=== PATIENT | female | born 1985 | race Hispanic/Latino ===

== ENCOUNTER 2018-09-16 02:17 | Emergency (ER) | payer SELFPAY ==
[2018-09-16 03:33] LABS: Pregnancy Test - Urine (BHCG) Negative (Negative); Pregu Control Background? CLEAR/WHITE (CLR/WHITE); Pregu Control Bar Appear? YES (CONTROL BAR); Specific Gravity 1.024 (1.002-1.036)
[2018-09-16 03:38] LABS: Bilirubin Negative (Negative); Blood, Urine Trace (Negative); Clarity Clear (Clear); Glucose, Urine (Dipstick) Normal (Negative); Leukocyte 75 Leu/uL (Negative); Mucous/LPF 2+ LPF (<2+); Nitrite Negative (Negative); Protein, Urine (Dipstick) 20 mg/dL (Neg-Trace); RBC/HPF 0-3 HPF (0-3); Urobilinogen Normal mg/dL (Less than 2)
[2018-09-16 03:39] LABS: Bacteria/HPF 1+ HPF (None Seen)
[2018-09-16 03:43] LABS: Hemoglobin 9.7 g/dL (12.0-16.0); Mean Corpuscular HGB CONC 31.8 g/dL (32.0-36.0); Mean Corpuscular Hemoglobin 22.2 pg (27.0-31.0); Mean Corpuscular Volume 69.8 fL (78.0-98.0); Mean Platelet Volume 9.2 fL (7.4-10.4); Platelet Count 344 thou/uL (130-400); RBC Distribution Width 14.3 % (11.5-14.5); Red Blood Cell (RBC) Count 4.35 mill/uL (4.20-5.40); White Blood Cell (WBC) Count 8.9 thou/uL (4.8-10.8)
[2018-09-16 03:52] LABS: ALT (SGPT) 10 U/L (8-55); AST (SGOT) 13 U/L (5-34); Albumin 4.1 g/dL (3.5-5.0); Alkaline Phosphatase 70 U/L (40-150); Anion Gap 11 mmol/L (10-20); BUN (Urea Nitrogen) 11 mg/dL (7.0-18.7); Bilirubin, Total 0.2 mg/dL (0.2-1.2); Calc. Creatinine Clearance 0 mL/min (70-130); Calcium 9.7 mg/dL (7.8-10.44); Carbon Dioxide 23 mmol/L (22-29); Chloride 104 mmol/L (98-107); Estimated GFR-MDRD Greater than 90; Globulin 3.7 g/dL (2.4-3.5); Glucose 132 mg/dL (70-105); Lipase 27 U/L (8-78); Potassium 3.9 mmol/L (3.5-5.1); Protein, Total 7.8 g/dL (6.0-8.3); Sodium 134 mmol/L (136-145)
[2018-09-16 03:56] LABS: #Basophils 0.1 thou/uL (0.0-0.2); #Eosinphils 0.1 thou/uL (0.0-0.7); #Monocytes 0.6 thou/uL (0.11-0.59); #Neutrophils 4.9 thou/uL (1.40-6.50); %Basophils 0.7 % (0.0-1.0); %Eosinophils 1.8 % (0.0-10.0); %Lymphocytes 34.7 % (21.0-51.0); %Neutrophils 56.2 % (42.0-75.0); MDiff Complete? YES; Microcytosis SLIGHT = 6-15 cells (100X) (0-5/hpf)
[2018-09-16] MEDS ORDERED: Ketorolac Tromethamine 30 MG/ML VIAL ONE (04:12)
--- NOTE | 2018-09-16 07:34 | CT ---
CT ABDOMEN AND PELVIS WITHOUT CONTRAST: Date: 09/16/18 INDICATION: Right lower quadrant abdominal pain. COMPARISON: None. FINDINGS: Lung bases are clear. Unopacified liver, pancreas, adrenal glands, and spleen appear within normal limits. Unopacified kidneys demonstrate no renal or ureteral calculus. No hydronephrosis evident. There is a normal appendix in the right lower quadrant. There is a heterogeneous appearance to the uterus. There is a 3.1 x 5.4 cm mass abutting the lateral body of the uterus possibly related to the left adnexa. The right adnexa is not well seen. There is m ild free fluid in the pelvis. Unopacified large and small bowel are normal caliber. No acute osseous abnormality is evident. IMPRESSION: 1. Heterogeneous appearance of the uterus with a prominent 5.4 cm left adnexal mass. Further evaluat ion with pelvic ultrasound is recommended. Findings may reflect sequelae of fibroid disease; however, adnexal lesion cannot be totally excluded. 2. Mild free fluid in the pelvis. 3. Normal appendix. 4. No renal or ureteral calculus. POS: [facility]
--- NOTE | 2018-09-16 08:31 | ULT ---
TRANSABDOMINAL AND TRANSVAGINAL PELVIC ULTRASOUND: Date: 09/16/18 INDICATION: Pelvic pain, concern for left adnexal mass seen on a CT evaluation dated 09/16/18. TECHNIQUE: Javier scale, color Doppler, and spectral Doppler images were obtained via a transvaginal approach. FINDINGS: The uterus measures 7.8 x 5.1 x 6.0 cm. Endometrial stripe is thickened, measuring 1.4 cm. There are two separate intramural fibroids seen within the lateral left uterine body. One measures 2.6 x 2.4 cm . An additional one measures 2.3 x 1.8 cm. There is an additional 2.3 cm left fundal uterine fibroid. The left ovary is enlarged measuring 4.4 x 2.0 x 4.4 cm. There is a 2.7 x 2.4 x 3.8 and a 1.8 x 1.1 x 1.0 cm heterogeneous nonvascular lesions within the left ovary suspicious for hemorrhagic cysts. The right ovary measures 3.0 x 1.6 x 1.9 cm. Small follicular cysts are seen within the right ovary m easuring 6.5 mm. There is normal flow to both ovaries. No free fluid is identified. IMPRESSION: 1. Fibroid uterus. 2. Two suspected large hemorrhagic cysts involving the left adnexa. Recommend follow-up pelvic ultra sound in 6-8 weeks to document resolution. 3. Normal appearance of the right ovary. POS: [facility]
== END 2018-09-16 07:44 | disposition home or self-care (01) ==
LOC: ERS 02:17
DX: N83.202 Unspecified ovarian cyst, left side (principal); D25.9 Leiomyoma of uterus, unspecified; N83.01 Follicular cyst of right ovary
CPT/HCPCS: 36415; 74176; 76856; 80053; 81003; 81015; 81025; 83690; 85025; 96374; J1885

== ENCOUNTER 2019-03-25 02:11 | Emergency (ER) | payer SELFPAY ==
[2019-03-25] MEDS ORDERED: Morphine 2 MG/ML SYRINGE ONE (03:01)
[2019-03-25] MEDS ORDERED: Ondansetron PF 4 MG/2 ML Vial ONE (03:01)
[2019-03-25 03:06] LABS: Squamous Epithelial 0-3 HPF (0-3)
[2019-03-25 03:07] LABS: Bilirubin Negative (Negative); Blood, Urine 3+ (Negative); Clarity Turbid (Clear); Glucose, Urine (Dipstick) Normal (Negative); Leukocyte 250 Leu/uL (Negative); Nitrite Negative (Negative); Protein, Urine (Dipstick) 50 mg/dL (Neg-Trace); Urobilinogen Normal mg/dL (Less than 2)
[2019-03-25 03:08] LABS: Bacteria/HPF 1+ HPF (None Seen)
[2019-03-25 03:16] LABS: Mean Corpuscular HGB CONC 30.4 g/dL (32.0-36.0); Mean Corpuscular Hemoglobin 21.1 pg (27.0-31.0); Mean Corpuscular Volume 69.3 fL (78.0-98.0); Mean Platelet Volume 9.2 fL (7.4-10.4); Platelet Count 355 thou/uL (130-400); RBC Distribution Width 14.5 % (11.5-14.5); Red Blood Cell (RBC) Count 4.28 mill/uL (4.20-5.40); White Blood Cell (WBC) Count 8.3 thou/uL (4.8-10.8)
[2019-03-25 03:28] LABS: BHCG - Serum Negative (NEGATIVE); Pregs Control Background? CLEAR/WHITE (CLR/WHITE); Pregs Control Bar Appear? YES (CONTROL BAR)
[2019-03-25 03:30] LABS: #Eosinphils 0.2 thou/uL (0.0-0.7); #Lymphocytes 2.1 thou/uL (1.20-3.40); #Monocytes 0.6 thou/uL (0.11-0.59); #Neutrophils 5.5 thou/uL (1.40-6.50); %Basophils 0.2 % (0.0-1.0); %Eosinophils 1.9 % (0.0-10.0); %Lymphocytes 25.4 % (21.0-51.0); %Monocytes 6.9 % (0.0-10.0); %Neutrophils 65.6 % (42.0-75.0); Hypochromia SLIGHT = 6-15 cells (100X) (0-5/hpf); MDiff Complete? YES; Microcytosis SLIGHT = 6-15 cells (100X) (0-5/hpf)
[2019-03-25 03:37] LABS: ALT (SGPT) 17 U/L (8-55); AST (SGOT) 15 U/L (5-34); Albumin 4.1 g/dL (3.5-5.0); Alkaline Phosphatase 80 U/L (40-110); Anion Gap 13 mmol/L (10-20); BUN (Urea Nitrogen) 13 mg/dL (7.0-18.7); Bilirubin, Total 0.2 mg/dL (0.2-1.2); Calc. Creatinine Clearance 0 mL/min (70-130); Calcium 8.5 mg/dL (7.8-10.44); Carbon Dioxide 20 mmol/L (22-29); Chloride 107 mmol/L (98-107); Estimated GFR-MDRD Greater than 90; Globulin 3.5 g/dL (2.4-3.5); Glucose 100 mg/dL (70-105); Lipase 24 U/L (8-78); Potassium 3.7 mmol/L (3.5-5.1); Protein, Total 7.6 g/dL (6.0-8.3); Sodium 136 mmol/L (136-145)
--- NOTE | 2019-03-25 08:07 | ULT ---
PRELIMINARY REPORT/[facility]/AFTER HOURS PROCEDURE COMPLETE PELVIC ULTRASOUND: CLINICAL HISTORY: Hx: Pelvic pain. Menorrhagia. See notes on last image. Thanks. TECHNIQUE: Transvaginal pelvic ultrasound (complete) with image documentation. COMPARISON: None provided. FINDINGS: ENDOMETRIUM: Poorly visualized. UTERUS/CERVIX: Normal size and contour. Measures 7.2 x 4.9 x 5.5 cm and demonstrates a 3.6 cm fibroi d. RIGHT OVARY: Normal follicles. No adnexal mass. Normal blood flow. Somewhat poorly visualized however appears to measure 3.1 x 1.4 x 2.5 cm. LEFT OVARY: Normal follicles. No adnexal mass. Normal blood flow. Measures 4.6 x 3.1 x 4.2 cm and de monstrates a 3 cm complex cyst, possibly hemorrhagic. FREE FLUID: No free fluid. IMPRESSION: Uterine fibroid with LEFT ovarian hemorrhagic cyst. ELECTRONICALLY SIGNED BY: Zack Sanford MD Mar 25, 2019 4:27:18 AM [employer]LECTRON[employer] DEPARTMENT MANAGER This report is intended for review by the ordering physician only, in accordance of law. If you recei ve this report in error, please call [facility] at [phone]. FINAL REPORT PELVIC ULTRASOUND INCLUDING TRANSVAGINAL AND VASCULAR DUPLEX WITH COLOR AND SPECTRAL DOPPLER IMAGING: HISTORY: Pelvic pain. Menorrhagia. FINDINGS: Large intrauterine fibroid, which has a somewhat bilobed appearance. Prior study indicated two fibroi ds, which probably are the same. There appears to be a large bilobed, complicated left ovarian hypoec hoic, probably a complicated cyst. This measures approximately 2.2 x 3 x 4 cm with little change from the prior study. No free intraperitoneal fluid. Considering persisted, complicated appearing left ov kd cyst or mass, follow-up gynecological evaluation is suggested for further assessment. Additiona l imaging might include an MRI if clinically indicated. CODE QA POS: [facility]
== END 2019-03-25 04:42 | disposition home or self-care (01) ==
LOC: ERS 02:11
DX: N83.202 Unspecified ovarian cyst, left side (principal); N39.0 Urinary tract infection, site not specified; Z79.899 Other long term (current) drug therapy
CPT/HCPCS: 76856; 80053; 81003; 81015; 83690; 84703; 85025; 87086; 96374; 96375; J2270; J2405

== ENCOUNTER 2020-06-07 15:24 | Emergency (ER) | payer SELFPAY ==
[2020-06-07] MEDS ORDERED: Aspirin Chewable 81 MG TAB ONE (16:03)
[2020-06-07] MEDS ORDERED: Lorazepam 2 MG/ML VIAL ONE (16:13)
[2020-06-07 16:25] LABS: #Basophils 0.2 thou/uL (0.0-0.2); #Eosinphils 0.1 thou/uL (0.0-0.7); #Lymphocytes 1.5 thou/uL (1.20-3.40); #Monocytes 0.7 thou/uL (0.11-0.59); #Neutrophils 5.7 thou/uL (1.40-6.50); %Basophils 1.9 % (0.0-1.0); %Eosinophils 0.8 % (0.0-10.0); %Lymphocytes 18.5 % (21.0-51.0); %Monocytes 8.5 % (0.0-10.0); %Neutrophils 70.3 % (42.0-75.0); Hemoglobin 9.2 g/dL (12.0-16.0); Mean Corpuscular HGB CONC 30.3 g/dL (32.0-36.0); Mean Corpuscular Volume 65.9 fL (78.0-98.0); Mean Platelet Volume 10.3 fL (7.4-10.4); Platelet Count 379 thou/uL (130-400); RBC Distribution Width 15.3 % (11.5-14.5); Red Blood Cell (RBC) Count 4.62 mill/uL (4.20-5.40); White Blood Cell (WBC) Count 8.2 thou/uL (4.8-10.8)
[2020-06-07 16:39] LABS: Anisocytosis SLIGHT = 6-15 cells (100X) (0-5/hpf); Hypochromia SLIGHT = 6-15 cells (100X) (0-5/hpf); MDiff Complete? YES; Microcytosis SLIGHT = 6-15 cells (100X) (0-5/hpf); Ovalocytes SLIGHT = 2-5 cells (100X) (0-1/hpf); Platelet Morphology Comment Appears Adequate; Polychromasia SLIGHT = 2-3 cells (100X) (0-2/hpf)
[2020-06-07 16:43] LABS: ALT (SGPT) 25 U/L (8-55); AST (SGOT) 31 U/L (5-34); Albumin 4.2 g/dL (3.5-5.0); Alkaline Phosphatase 92 U/L (40-110); Anion Gap 16 mmol/L (10-20); BUN (Urea Nitrogen) 14 mg/dL (7.0-18.7); Bilirubin, Total 0.3 mg/dL (0.2-1.2); Calc. Creatinine Clearance 0 mL/min (70-130); Calcium 9.6 mg/dL (7.8-10.44); Carbon Dioxide 17 mmol/L (22-29); Chloride 107 mmol/L (98-107); Globulin 4.1 g/dL (2.4-3.5); Glucose 107 mg/dL (70-105); Protein, Total 8.3 g/dL (6.0-8.3); Sodium 136 mmol/L (136-145)
[2020-06-07 17:02] LABS: Free T4 (Free Thyroxine) 2.02 ng/dL (0.70-1.48); Thyroid Stimulating Hormone Less than 0.0025 uIU/mL (0.35-4.94)
== END 2020-06-07 18:02 | disposition home or self-care (01) ==
LOC: ERS 15:24
DX: E05.90 Thyrotoxicosis, unspecified without thyrotoxic crisis or storm (principal); F41.9 Anxiety disorder, unspecified
CPT/HCPCS: 36415; 71045; 80053; 83880; 84439; 84443; 84484; 85025; 85379; 93005; 96374; J2060